=== PATIENT | female | born 1995 | race Two or more races ===

== ENCOUNTER → 2020-01-30 | Emergency (ER) | payer OTHER ==
[~2020-01-30] VITALS: Ht 160 cm; Wt 57.6 kg
[~2020-01-30] MED LIST: LEXAPRO20 MG PO; PEPCID AC20 MG PO; PREVACID15 MG PO
== END | disposition home or self-care (01) ==
LOC: ER 20:07
DX: K80.20 Calculus of gallbladder without cholecystitis without obstruction (principal); K29.70 Gastritis, unspecified, without bleeding

== ENCOUNTER 2024-09-02 12:54 | Emergency (ER) | payer OTHER ==
[~2024-09-02] VITALS: Ht 157.5 cm; Wt 52.2 kg
[2024-09-02] MEDS ORDERED: ONDANSETRON HCL 2 MG/ML VIAL IV ONE (14:30)
[2024-09-02] MEDS ORDERED: FAMOTIDINE/PF 20 MG/2 ML VIAL IV ONE (14:30)
[2024-09-02] MEDS ORDERED: 0.9 % SODIUM CHLORIDE 1,000 ML IV ONE (14:30)
[2024-09-02 15:06] LABS: HEMATOCRIT 42.4 % (36.0-45.00); MEAN CELL VOLUME 89.9 fL (80.00-100.00); MEAN CORPUSCULAR HEMOGLOBIN 29.7 pg (27.00-32.0); MEAN CORPUSCULAR HGB CONC 33.1 g/dl (32.0-36.0); PLATELET COUNT 195 K/uL (150-450); RED BLOOD COUNT 4.72 M/uL (4.00-6.00); RED CELL DISTRIBUTION WIDTH 13.3 % (11.5-14.5)
[2024-09-02 15:28] LABS: BILIRUBIN TOTAL 1.79 mg/dL (0.3-1.2); BILIRUBIN,CONJUGATED 0.38 mg/dL (0.0-0.2); BILIRUBIN,UNCONJUGATED 1.41 mg/dL (0.0-0.6); CALCIUM 9.1 mg/dL (8.5-10.1); CREATININE SERUM 0.84 mg/dL (0.55-1.02); GFR 79.61; GLOBULINA 4.3 G/DL (2.4-3.5); POTASSIUM 3.48 mEq/L (3.5-5.1); TOTAL PROTEIN 8.3 gm/dL (6.4-8.2)
[2024-09-02 15:51] LABS: PH,URINE 5.5 (5.0-8.0); URINE APPEARANCE Clear; URINE BILIRRUBIN Negative (NEGATIVE); URINE BLOOD Trace; URINE COLOR Yellow; URINE GLUCOSE Negative (NEGATIVE); URINE KETONE 15 (NEGATIVE); URINE LEUKOCYTE Negative; URINE NITRATE Negative; URINE PROTEIN Negative (NEGATIVE)
[2024-09-02 15:54] LABS: URINE BACTERIA 554.1 uL (0.0-1933); URINE EPITHELIAL CELLS 11.5 uL (0.0-38.8); URINE RBC 6.6 uL (0.0-20.8); URINE WBC 4.2 uL (0.0-23.2)
[2024-09-02 16:07] LABS: URINE CAST 0.29 uL (0.0-1.40)
[2024-09-02] MEDS ORDERED: DIPHENHYDRAMINE HCL 50 MG/ML VIAL 1ML IV ONE (16:15)
[2024-09-02] MEDS ORDERED: PEPCID AC20 MG PO (18:37)
[2024-09-02] MEDS ORDERED: ONDANSETRON HCL4 MG PO (18:37)
[2024-09-02] MEDS ORDERED: CARAFATE1 GM PO (18:37)
== END 2024-09-02 18:52 ==
LOC: ER 12:56
PROVIDERS: General Practice
DX: K29.70 Gastritis, unspecified, without bleeding (principal); Z20.822 Contact with and (suspected) exposure to COVID-19; R53.81 Other malaise

== ENCOUNTER 2024-09-09 09:53 | Outpatient (CLI) | payer OTHER ==
[~2024-09-09 09:53] MED LIST changes: +CARAFATE1 GM PO; +ONDANSETRON HCL4 MG PO
== END 2024-09-09 09:54 | disposition home or self-care (01) ==
LOC: NUCLEAR 09:53
DX: R10.9 Unspecified abdominal pain (principal); R11.2 Nausea with vomiting, unspecified; K80.50 Calculus of bile duct without cholangitis or cholecystitis without obstruction